=== PATIENT | female | born 2000 | race Caucasian/White ===

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

== ENCOUNTER 2021-11-27 14:35 | Emergency (ER) | payer MEDICAID, SELFPAY ==
[2021-11-27] MEDS ORDERED: AMOXicillin 250 MG CAP ONE (15:41)
[2021-11-27] MEDS ORDERED: Ketorolac Tromethamine 30 MG/ML VIAL ONE (15:41)
== END 2021-11-27 16:00 | disposition home or self-care (01) ==
LOC: MADERS 14:35
DX: L03.211 Cellulitis of face (principal); K02.9 Dental caries, unspecified; F17.210 Nicotine dependence, cigarettes, uncomplicated
CPT/HCPCS: 96372; 99283; J1885

== ENCOUNTER 2021-12-04 21:41 | Emergency (ER) | payer SELFPAY ==
[2021-12-04] MEDS ORDERED: Boostrix 0.5 ML (Tdap) VIAL ONE (23:05)
[2021-12-05] MEDS ORDERED: Bacitracin 1 PK ONE (00:01)
== END 2021-12-05 00:19 | disposition home or self-care (01) ==
LOC: MADERS 21:41
DX: R07.2 Precordial pain (principal); F45.8 Other somatoform disorders; E87.6 Hypokalemia; I10 Essential (primary) hypertension; E11.9 Type 2 diabetes mellitus without complications; E78.5 Hyperlipidemia, unspecified; R63.5 Abnormal weight gain; Z68.45 Body mass index [BMI] 70 or greater, adult; Z79.899 Other long term (current) drug therapy
CPT/HCPCS: 90471; 90715

== ENCOUNTER 2022-04-29 12:07 | Emergency (ER) | payer SELFPAY ==
[~2022-04-29 12:07] MED LIST changes: +Iopamidol 370 76% 100 ML VIAL ONE; -Ondansetron PF 4 MG/2 ML Vial ONE; -Sodium Chloride 0.9% 1,000 ML BAG ONE
[2022-04-29] MEDS ORDERED: Lidocaine Viscous Sol 2% 15 ml UD Cup ONE (12:45)
[2022-04-29] MEDS ORDERED: Sodium Chloride 0.9% 1,000 ML ONE (12:45)
[2022-04-29] MEDS ORDERED: Dexamethasone 4 mg/ml Vial ONE (12:45)
[2022-04-29] MEDS ORDERED: Ketorolac Tromethamine 30 MG/ML VIAL ONE (12:45)
[2022-04-29 12:58] LABS: BHCG - Serum Negative (NEGATIVE); Pregs Control Background? CLEAR/WHITE (CLR/WHITE); Pregs Control Bar Appear? YES (CONTROL BAR)
[2022-04-29 13:04] LABS: Anion Gap 16 mmol/L (10-20); BUN (Urea Nitrogen) 10 mg/dL (7.0-18.7); Calc. Creatinine Clearance 0 mL/min (70-130); Carbon Dioxide 23 mmol/L (22-29); Chloride 99 mmol/L (98-107); Estimated GFR 123; Glucose 94 mg/dL (70-105); Sodium 134 mmol/L (136-145)
[2022-04-29 13:20] LABS: Band 7 % (5-11); Eosinophils 1 % (0-10); Hemoglobin 15.7 g/dL (12.0-16.0); Lymphocytes 11 % (28-48); MDiff Complete? YES; Mean Corpuscular HGB CONC 34.4 g/dL (32.0-36.0); Mean Corpuscular Hemoglobin 30.5 pg (25.0-35.0); Mean Corpuscular Volume 88.6 fl (78.0-98.0); Mean Platelet Volume 8.8 fL (7.4-10.4); Monocytes 7 % (0-4); Neutrophil 74 % (31-61); Platelet Count 231 10x3/uL (130-400); Platelet Morphology Comment Appears Adequate; RBC Distribution Width 10.6 % (11.5-14.5); RBC Morphology Normal; Red Blood Cell (RBC) Count 5.15 mill/uL (4.00-5.20); White Blood Cell (WBC) Count 13.9 10x3/uL (4.8-10.8)
[2022-04-29 13:26] LABS: MONO NEGATIVE CONTROL ZONE White (Negative) (White); MONO POSITIVE CONTROL Pink Line (Positive) (PINK/RED); Mononucleosis NEGATIVE (NEGATIVE)
[2022-04-29] MEDS ORDERED: Sodium Chloride 0.9% 100 ML ONE (14:33)
[2022-04-29] MEDS ORDERED: Ampicillin/Sulbactam 3 GM VIAL ONE (14:33)
== END 2022-04-29 15:15 | disposition home or self-care (01) ==
LOC: MADERS 12:07
DX: J36 Peritonsillar abscess (principal); F17.210 Nicotine dependence, cigarettes, uncomplicated
CPT/HCPCS: 70491; 80048; 84703; 85025; 86308; 87081; 87430; 96365; 96375; J0295; J1100; J1885; J7050; Q9967

== ENCOUNTER 2022-05-02 11:58 | Emergency (ER) | payer SELFPAY ==
[~2022-05-02 11:58] MED LIST changes: +Sodium Chloride 0.9% 100 ML BAG ONE
[2022-05-02] MEDS ORDERED: Sodium Chloride 0.9% 1,000 ML ONE ×2 (12:44→15:05)
[2022-05-02] MEDS ORDERED: Morphine 4 MG/ML VIAL ONE (12:44)
[2022-05-02] MEDS ORDERED: Ampicillin/Sulbactam 3 GM VIAL ONE (12:44)
[2022-05-02] MEDS ORDERED: Dexamethasone 10 MG/ML VIAL ONE (12:44)
[2022-05-02 12:52] LABS: Anion Gap 18 mmol/L (10-20); BUN (Urea Nitrogen) 9 mg/dL (7.0-18.7); Calc. Creatinine Clearance 0 mL/min (70-130); Calcium 9.9 mg/dL (7.8-10.44); Carbon Dioxide 22 mmol/L (22-29); Chloride 99 mmol/L (98-107); Estimated GFR 129; Glucose 147 mg/dL (70-105); Potassium 3.5 mmol/L (3.5-5.1); Sodium 135 mmol/L (136-145)
[2022-05-02 13:01] LABS: Band 8 % (5-11); Hemoglobin 15.5 g/dL (12.0-16.0); Lymphocytes 8 % (28-48); MDiff Complete? YES; Mean Corpuscular HGB CONC 34.4 g/dL (32.0-36.0); Mean Corpuscular Hemoglobin 30.4 pg (25.0-35.0); Mean Corpuscular Volume 88.4 fl (78.0-98.0); Mean Platelet Volume 7.1 fL (7.4-10.4); Monocytes 6 % (0-4); Neutrophil 78 % (31-61); Platelet Count 329 10x3/uL (130-400); Platelet Morphology Comment Appears Adequate; RBC Distribution Width 10.5 % (11.5-14.5); RBC Morphology Normal; Red Blood Cell (RBC) Count 5.08 mill/uL (4.00-5.20); White Blood Cell (WBC) Count 16.6 10x3/uL (4.8-10.8)
[2022-05-02 13:03] LABS: BHCG - Serum Negative (NEGATIVE); Pregs Control Bar Appear? YES (CONTROL BAR)
[2022-05-02 13:04] LABS: Pregs Control Background? CLEAR/WHITE (CLR/WHITE)
== END 2022-05-02 16:00 | disposition short-term general hospital (02) ==
LOC: MADERS 11:58
DX: A41.9 Sepsis, unspecified organism (principal); J36 Peritonsillar abscess
CPT/HCPCS: 70491; 80048; 83605; 84703; 85025; 87040; 96365; 96375; J0295; J1100; J2270; J3490; J7050; Q9967